=== PATIENT | male | born 1985 | race African-American/Black ===

== ENCOUNTER 2017-11-10 19:54 | Emergency (ER) | payer SELFPAY ==
--- NOTE | 2017-11-10 20:29 | UC ---
Dental HPI - HPI Summary HPI Summary: 32 yo male presents with right lower dental pain. He says that he gets an abscess here a couple times a year and it usually "pops". This time the pain is increased and feels more pressure there. This has been going on for the last 3- 5 days. Recently got insurance and is scheduling an appointment with a dentist for next month. Is able to eat and drink, but with pain. Denies fever, chills. - History of Current Complaint Stated Complaint: TOOTH PAIN,SWELLING Time Seen by Provider: 11/10/17 20:28 Hx Obtained From: Patient Onset/Duration: Gradual Onset Severity: Moderate Pain Intensity: 7 Pain Scale Used: 0-10 Numeric - Allergies/Home Medications Allergies/Adverse Reactions: Allergies Allergy/AdvReac Type Severity Reaction Status Date / Time No Known Allergies Allergy Verified 11/10/17 20:35 PMH/Surg Hx/FS Hx/Imm Hx - Additional Past Medical History Additional PMH: None Previously Healthy: Yes - Surgical History Surgical History: None - Family History Known Family History: Positive: Hypertension - Social History Lives: With Family Alcohol Use: Occasionally Substance Use Type: None Smoking Status (MU): Light Every Day Tobacco Smoker Review of Systems Constitutional: Negative Skin: Negative Eyes: Negative ENT: Dental Pain Respiratory: Negative Cardiovascular: Negative Neurovascular: Negative Neurological: Negative Psychological: Negative All Other Systems Reviewed And Are Negative: Yes Physical Exam - Summary Physical Exam Summary: GENERAL: NAD. WDWN. No pain distress. SKIN: No rashes, sores, lesions, or open wounds. HEENT: Nose: NTTP maxillary and frontal sinus. Throat: Posterior oropharynx without exudates, erythema, or tonsillar enlargement. Uvula midline. NECK: Supple. Nontender. No lymphadenopathy. CHEST: CTAB. No r/r/w. No accessory muscle use. Breathing comfortably and in no distress. CV: RRR. Without m/r/g. Pulses intact. Brisk cap refill. NEURO: Alert. CN II-XII grossly intact. PSYCH: Age appropriate behavior. Triage Information Reviewed: Yes Vital Signs: Vital Signs: Temp Pulse Resp BP Pulse Ox 98.9 F 80 20 134/84 99 11/10/17 20:30 11/10/17 20:30 11/10/17 20:30 11/10/17 20:30 11/10/17 20:30 Dental: Positive: Percussion Tenderness @ - Tooth #30-31, Gross Decay/Caries @ - Throughout, Abscess @ - Tooth #30-31. Negative: Dental Fracture @, Cellulitis @, Cervical Lymphadenopathy, Bleeding Dental Complaint Course/Dx - Course Course Of Treatment: Tooth #30-31 dental abscess. Amoxicillin. - Differential Dx/Diagnosis Provider Diagnoses: Tooth #30-31 dental abscess Discharge - Sign-Out/Discharge Documenting (check all that apply): Discharge/Admit/Transfer - Discharge Plan Condition: Stable Disposition: HOME Prescriptions: Amoxicillin PO (*) [Amoxicillin 500 MG CAP*] 500 mg PO Q12H #14 cap Lidocaine 2% VISCOUS* [Xylocaine 2% Viscous*] 10 ml SWISH SPIT TID #150 ml Patient Education Materials: Dental Abscess (ED) Referrals: No Primary Care Phys,NOPCP [Primary Care Provider] - Additional Instructions: If you develop a fever, shortness of breath, chest pain, new or worsening symptoms - please call your PCP or go to the ED. - Billing Disposition and Condition Condition: STABLE Disposition: HOME
[2017-11-10 20:35] VITALS: BP 134/84
[2017-11-10] MEDS ORDERED: Amoxicillin PO (*) 500 MG CAP PO ONE (20:46)
== END 2017-11-10 20:50 | disposition home or self-care (01) ==
LOC: UCEAST 19:54
DX: K04.7 Periapical abscess without sinus (principal); F17.210 Nicotine dependence, cigarettes, uncomplicated
CPT/HCPCS: 99212; A9270-GY; G0463